=== PATIENT | female | born 1945 | race Caucasian/White ===

== ENCOUNTER 2018-01-22 10:43 | Inpatient (IN) ==
--- NOTE | 2018-01-22 11:05 | EKG ---
[address] [address] Measurements Intervals [place] Rate: 107 P: 41 ME: 159 QRS: -5 QRSD: 92 T: 48 QT: 313 QTc: 376 Interpretive Statements SINUS TACHYCARDIA WITH FREQUENT VENTRICULAR PREMATURE COMPLEXES, some in bigeminal pattern ABNORMAL RHYTHM ECG INTERPRETATION BASED ON A DEFAULT AGE OF 40 YEARS No previous ECG available for comparison Electronically Signed On 01-23-18 15:07:48 MDT by Simone Patton MD [id number]
[2018-01-22 11:13] LABS: BASOPHILS # (AUTO) 0.03 10*3/UL; BASOPHILS % (AUTO) 0.1 % (0-1); EOSINOPHILS # (AUTO) 0.08 10*3/UL; EOSINOPHILS % (AUTO) 0.3 % (0-8); Hemoglobin [HGB] 11.5 g/dL (12.0-16.0); LYMPHOCYTES # (AUTO) 1.12 10*3/uL; MEAN CORPUSCULAR HGB CONC 31.9 g/dL (33-37); MEAN PLATELET VOLUME 9.6 FL (7.4-12.2); MONOCYTES # (AUTO) 2.24 10*3/UL (0.3-0.8); MONOCYTES % (AUTO) 9.4 % (5-15); NEUTROPHILS # (AUTO) 20.39 10*3/UL; NEUTROPHILS % (AUTO) 85.1 % (50-80); RED BLOOD COUNT 3.71 10^6/uL (4.20-5.40)
[2018-01-22 11:20] LABS: BLOOD UREA NITROGEN 40 mg/dL (7-22); BUN/CREATININE RATIO 17.39 (6-20); SERUM ALBUMIN 3.5 g/dL (3.5-4.8)
[2018-01-22 11:26] LABS: PLATELET MORPHOLOGY COMMENT NORMAL MORPHOLOGY (NORM); RBC MORPHOLOGY COMMENT NORMAL MORPHOLOGY (NORM); WBC MORPHOLOGY COMMENT NORMAL MORPHOLOGY (NORM)
[2018-01-22] MEDS: Sodium Chloride 0.9% 1,000 ML PRIMARY IV ONE ×2 (11:32→13:39)
[2018-01-22 11:40] LABS: VENOUS PH 7.39 (7.32-7.42)
--- NOTE | 2018-01-22 11:55 | DI ---
AP CHEST X-RAY, 01/22/2018 11:00 AM : Clinical History: Confusion. Fatigue. Previous Exam: None at this facility. There is no acute soft tissue or bony abnormality. The patient is status post total left reverse shou lder replacement and right humeral head replacement. Heart size is normal. Lungs are clear. There is eventration of the right diaphragm. Mediastinal structures are normal. There are no pulmonary nodules . Reading: Normal chest x-ray.
--- NOTE | 2018-01-22 12:21 | DI ---
CT HEAD SCAN WITHOUT IV CONTRAST, 01/22/2018 11:00 AM : Clinical History: Confusion. Previous Exam: None at this facility. Scans are obtained from the foramen magnum to the vertex without IV contrast. The 4th, 3rd, and lateral ventricles are of normal size, shape, position, and contour for the patient 's age. There is no evidence of an acute hemorrhagic or bland infarct. There is a punctate 2 mm calci fic density in the left centrum semiovale just superior to the body of the left lateral ventricle. Th is can represent a calcification in a vascular channel or a nidus secondary to a previous intracerebr al infection. In the left parieto-occipital region near the the midline or some calcifications abutti ng the dura. The largest measures 7 mm in diameter and may represent a small calcified meningioma. Th ere is mild cerebellar and cerebral atrophy. There are no extracerebral mantles or shift of the midli ne structures. Bone window evaluation is normal. The paranasal sinuses are normal. READIN. There is no evidence of an acute hemorrhagic or bland infarct. 2. There is a small 2 mm punctate calcification located in the left centrum semiovale in proximity t o the body of the left lateral ventricle anteriorly. This can either represent calcification in a vas cular channel such as a venous angioma, or it may represent postinfectious calcification. 3. Probable 7 mm calcified meningioma in the left parietal-occipital junction near the midline. 4. Mild cerebellar and cerebral atrophy.
[2018-01-22 12:34] LABS: BILIRUBIN,URINE NEGATIVE (NEG); CLARITY,URINE Slightly Cloudy (CLEAR); COLOR,URINE YELLOW (Y); GLUCOSE, URINE (UA) NEGATIVE (NEG); OCCULT BLOOD,URINE Trace-intact (NEG); PROTEIN,URINE NEGATIVE (NEG); UROBILINOGEN,URINE 0.2 EU/dL (0.2)
[2018-01-22 12:36] LABS: RBC,URINE 0-2 /hpf; SQUAMOUS EPITHELIAL CELL,UR RARE; URINE SAMPLE TYPE VOIDED SPECIMEN; WBC,URINE >100
[2018-01-22 12:37] LABS: BACTERIA,URINE MANY
[2018-01-22] MEDS ORDERED: cefTRIAXone Inj 1 GM in Sodium Chloride 0.9% 100 ML IV ONE (13:22)
[2018-01-22] MEDS ORDERED: cefTRIAXone 1 GM VIAL ONE (13:32)
[2018-01-22] MEDS ORDERED: LIDOCAINE W/ SODIUM BICARB 0.5 ML SYR SUBD PRN (14:41)
[2018-01-22] MEDS ORDERED: ONDANSETRON 4 MG/2 ML VIAL IVP PRN (14:41)
[2018-01-22] MEDS ORDERED: CALCIUM CARBONATE 500 MG (TUMS) CHEWABLE TABLET PO PRN (14:41)
[2018-01-22] MEDS ORDERED: DOCUSATE 100 MG CAPSULE PO PRN (14:41)
--- NOTE | 2018-01-22 15:10 | PDOC ---
HPI - History of Present Illness Date of Service: 01/22/18 Time of Service: 15:00 Chief Complaint: Weakness the last few days, confusion yesterday, sweating today. History of Present Illness: This is a 72 years old the female with medical history significant for history of hypertension, diabetes, chronic kidney disease stage III and neuropathy who was sent to the hospital from the clinic in [place] because of sweating, and weakness. The weakness she said started a few days ago, yesterday the family reported confusion and the also some confusion this morning, she also said was shaking yesterday. The felt that she had a fever. They did not check the temperature though. Because of all the symptoms she went to the clinic and from there they sent her to the ER in the ER she was found to have an elevated white count, her urine test was abnormal showing worsening kidney failure she was given fluids and Rocephin was admitted. She feels somewhat better compared to when she came in. She is denying chest pain, shortness of breath, dizziness did report some frontal headache. Family did report that she appeared short of breath though when she walked from the parking lot to the ER. Past Medical History Medical History: 1. History of diabetes had it for 2 years. 2. History of hypertension. 3. History of osteoarthritis. 4. History of chronic kidney disease stage III. 5. History of depression. 6. History of neuropathy Surgical History: 1. History of bilateral knee replacement. 2. History of bilateral hip replacement. 3. History of bilateral shoulder replacement Family History: Reviewed an Not Pertinent Past Social History: Does not smoke. Drinks no drugs. Lives with his spouse in [facility]. Tobacco Use: Never Smoker In the Past 12 Months, Have Used or Abuse Any of the Following Substance: None Medication / Allergies Home Medications: Home Medications 3 Medication Instructions Recorded Confirmed Type Aspirin 81 mg ORAL QD tab 04/16/12 01/22/18 History Multivitamin [Daily Vitamin] 1 tab ORAL QD tab 04/16/12 01/22/18 History Insulin Lispro [Humalog Kwikpen 200 unit SQ AC #1 unit 11/11/15 01/22/18 History U-200] Pen Needle, Diabetic, Safety 1 ea TID #270 unit 12/07/15 01/22/18 History [Autoshield Pen Needle] Insulin Glargine SoloStar Inj 20 unit SUBCUT QHS #3 unit 01/20/17 01/22/18 Rx [Lantus Solostar Inj] enalapril maleate 10 mg tablet 10 mg ORAL BID #180 tab 07/04/17 01/22/18 Rx omeprazole 20 mg capsule,delayed 20 mg PO DAILY #90 cap 07/04/17 01/22/18 Rx release meloxicam 15 mg tablet 15 mg PO QDAY #90 tab 07/19/17 01/22/18 Rx duloxetine 60 mg capsule,delayed 60 mg ORAL QD #90 cap 10/03/17 01/22/18 Rx release blood sugar diagnostic strips 1 strip MISCELLANEOUS TID #100 11/06/17 01/22/18 Rx strip spironolactone 25 mg tablet 12.5 mg PO DAILY #45 tab 12/08/17 01/22/18 Rx tramadol 50 mg tablet 50 mg PO Q8-12H PRN #180 tab 12/08/17 01/22/18 Rx simvastatin 20 mg tablet 20 mg ORAL QD #90 tab 01/15/18 01/22/18 Rx cyclobenzaprine 10 mg tablet 10 mg PO TID #90 tab 01/17/18 01/22/18 Rx Allergies/Adverse Reactions: Allergies 3 Allergy/AdvReac Type Severity Reaction Status Date / Time Penicillins Allergy RASH Verified 01/22/18 14:21 Sulfa (Sulfonamide Allergy RASH Verified 01/22/18 14:21 Antibiotics) Review of Systems - Review of Systems All Systems: Reviewed & No Additional Complaints Except as Stated Exam - Vitals Vital Signs: Vital Signs Temperature 98.2 F Temperature Source Temporal Artery Scan Pulse Rate [Telemetry] 101 Respiratory Rate 16 Blood Pressure [Left Arm] 126/74 Pulse Ox 94 Oxygen Delivery Method Room Air Height 5 ft 5 in Weight 168 lb 12.8 oz - General General Appearance: No Acute Distress, Cooperative - Head Head Exam: Normal Inspection - Eye Eye Exam: POSITIVE: Normal Appearance - ENT ENT Exam: POSITIVE: Normal Exam - Neck Neck Exam: Normal Inspection - Respiratory Respiratory Exam: POSITIVE: Clear to Auscultation - Bilaterally - Cardiovascular Cardiovascular Exam: POSITIVE: RRR - GI/Abdominal GI/Abdominal Exam: POSITIVE: Normal Bowel Sounds, Non Tender, Non Distended, Soft, No Organomegaly - Rectal Rectal Exam: POSITIVE: Deferred - External Exam: POSITIVE: Deferred Exam: POSITIVE: Deferred - Extremities Extremities Exam: POSITIVE: Normal Inspection - Back Back Exam: POSITIVE: Normal Inspection - Neurological Neurological Exam: POSITIVE: Alert, Oriented x 3, CN II-XII Intact, No Facial Droop, Speech Intact / Clear, Moves All Extremities Equally - Psychiatric Psychiatric Exam: POSITIVE: Normal Affect - Integumentary Integumentary Exam: POSITIVE: Normal Color Results - Labs CBC and BMP: 01/22/18 10:50 01/22/18 10:50 - EKG Data -: EKG Interpreted by Me Rate: Tachycardia - EKG Data When Compared to Previous EKG(s) There Are: Other (EKG shows sinus tachycardia with frequent premature beats) - Imaging Status: Report Reviewed by Me (CT head 1. There is no evidence of an acute hemorrhagic or bland infarct. 2. There is a small 2 mm punctate calcification located in the left centrum semiovale in proximity to the body of the left lateral ventricle anteriorly. This can either represent calcification in a vascular channel such as a venous angioma, or it may represent postinfectious calcification. 3. Probable 7 mm calcified meningioma in the left parietal- occipital junction near the midline. 4. Mild cerebellar and cerebral atrophy. Chest X ray Normal chest x-ray.) Assessment and Plan - Patient Problems (1) Sepsis Current Visit: Yes Status: Acute Comment: The tachycardia and the indurated white count suggest sepsis. The source seem to be the urinary tract. She was given fluids and antibiotics will continue. Code(s): A41.9 - Sepsis, unspecified organism (2) Urinary tract infection Current Visit: Yes Status: Acute Comment: Continue Rocephin. Will wait for culture results. Code(s): N39.0 - Urinary tract infection, site not specified (3) Acute on chronic renal failure Current Visit: Yes Status: Acute Comment: There is worsening of her kidney disease compared to what she had in 2016 I think there is an elements of an acute worsening. Will give her fluid repeat her labs in the morning. We'll hold off on her enalapril and spironolactone Code(s): N17.9 - Acute kidney failure, unspecified; N18.9 - Chronic kidney disease, unspecified (4) Diabetes mellitus, type 2 Current Visit: No Status: Chronic Comment: Continue with the Lantus and sliding scale. (5) Calcified cerebral meningioma Current Visit: Yes Status: Acute Comment: CT suggests a calcified stable meningioma this need to be followed up as an outpatient Code(s): D32.0 - Benign neoplasm of cerebral meninges
[2018-01-22] MEDS: Sodium Chloride 0.9% 1,000 ML PRIMARY IV SCH ×2 (15:18→23:39)
[2018-01-22] MEDS: ACETAMINOPHEN 325 MG TABLET PO PRN ×2 (15:29→23:45)
[2018-01-22] MEDS ORDERED: traMADol 50 MG TABLET PO PRN (16:58)
[2018-01-22] MEDS: Simvastatin Tab 20 MG TAB PO SCH (21:09)
[2018-01-22] MEDS: Insulin Glargine SoloStar Inj 100 UNIT/ML INSULN.PEN SUBCUT SCH (21:09)
[2018-01-22] MEDS ORDERED: METOPROLOL SUCCINATE 50 MG SR 24H TABLET PO ONE (23:36)
--- NOTE | 2018-01-23 00:33 | EKG ---
[address] [address] Measurements Intervals [place] Rate: 131 P: 22 UT: 155 QRS: 1 QRSD: 93 T: 71 QT: 272 QTc: 349 Interpretive Statements SINUS TACHYCARDIA NONSPECIFIC ST & T-WAVE ABNORMALITY ABNORMAL RHYTHM ECG Compared to ECG 01/22/2018 08:33:06 T-wave abnormality now present Electronically Signed On 01-23-18 15:10:56 MDT by Simone Patton MD [id number]
[2018-01-23] MEDS ORDERED: Vancomycin-PHA to Dose IV PRN (00:49)
[2018-01-23] MEDS ORDERED: Acetaminophen 1000mg Inj 1,000 MG/100 ML VIAL IV PRN (00:50)
[2018-01-23] MEDS: Meropenem Inj 1 GM in Sodium Chloride 0.9% 100 ML IV SCH ×2 (01:25→14:17)
[2018-01-23 05:09] LABS: BASOPHILS # (AUTO) 0.02 10*3/UL; BASOPHILS % (AUTO) 0.1 % (0-1); EOSINOPHILS # (AUTO) 0 10*3/UL; EOSINOPHILS % (AUTO) 0 % (0-8); Hematocrit [HCT] 31.4 % (37.0-47.0); Hemoglobin [HGB] 9.9 g/dL (12.0-16.0); LYMPHOCYTES # (AUTO) 0.92 10*3/uL; MEAN CORPUSCULAR HEMOGLOBIN 30.7 PG (27-31); MEAN CORPUSCULAR HGB CONC 31.5 g/dL (33-37); MEAN CORPUSCULAR VOLUME 97.2 FL (81-99); MONOCYTES # (AUTO) 2.21 10*3/UL (0.3-0.8); MONOCYTES % (AUTO) 10.7 % (5-15); NEUTROPHILS # (AUTO) 17.43 10*3/UL; NEUTROPHILS % (AUTO) 84.3 % (50-80); RED BLOOD COUNT 3.23 10^6/uL (4.20-5.40)
[2018-01-23 05:12] LABS: BLOOD UREA NITROGEN 35 mg/dL (7-22); BUN/CREATININE RATIO 18.42 (6-20)
[2018-01-23 05:41] LABS: PLATELET MORPHOLOGY COMMENT NORMAL MORPHOLOGY (NORM); RBC MORPHOLOGY COMMENT NORMAL MORPHOLOGY (NORM); WBC MORPHOLOGY COMMENT NORMAL MORPHOLOGY (NORM)
--- NOTE | 2018-01-23 06:07 | PDOC ---
General Adult HPI - General Chief Complaint: Chest Pain Stated Complaint: fatigue, disorientation, "just not feeling well" Date Seen by Provider: 01/22/18 Time Seen by Provider: 10:45 Source: POSITIVE: Patient, Old records, Other (Spouse and children) Exam Limitations: POSITIVE: No limitations Nurse's Notes Reviewed & Considered: Yes - History of Present Illness Initial Comment: The patient is a 72-year-old female who is brought by private auto from the medical clinic in [place], reportedly having been instructed by a nurse practitioner at that clinic to come to the emergency room. The patient has a two-week history of "being tired and intermittently disoriented". Some headache. Daughter states that she has been "spending all of her time in bed. She has had episodes of "being shaky and off balance. Patient has a history of cardiac dysrhythmias and was evaluated by a referral rn in [place] with a Holter monitor and patient family states that she was told that "everything looked fine". She has also had intermittent fevers. No head, chest or abdominal pain. History of diabetes mellitus and takes 15 units of NovoLog in the evening. Patient states that her blood sugars have been "okay. Have you received a tetanus shot in the past 10 years?: No Body Location Affected: REPORTS: Other (Multiple complaints as above) Timing: REPORTS: Gradual Duration: >1 week (2 weeks) Severity: Moderate Quality: REPORTS: Other (Patient denies any pain anywhere) Context: DENIES: None, Sitting, Standing, Activity, Emotional stress, Coughing, Recent Trauma, Recent Surgery, Sleep, Rest, Lifting, Turning, Bending, Fall, Near Fall, Other Modifying Factors: worse with: Nothing, Analgesics, Antacids, Breathing, Coughing, Defecating, Vomiting, Eating, Exercise, Lying down, Urinating, Palpation, Movement, Rest, Upright Position, Walking, Remaining Still, Other Similar Symptoms Previously: No Recent Care Received: REPORTS: Recently Seen, Treated by MD (As above) Any Prior Injuries Related to Current Complaint?: No - Patient Home Medications Home Medications: Home Medications Aspirin 81 mg ORAL QD tab 04/16/12 Multivitamin [Daily Vitamin] 1 tab ORAL QD tab 04/16/12 Insulin Lispro [Humalog Kwikpen U-200] 200 unit SQ AC #1 unit 05/18/16 Pen Needle, Diabetic, Safety [Autoshield Pen Needle] 1 ea MC TID #270 unit 12/06 Insulin Glargine SoloStar Inj [Lantus Solostar Inj] 20 unit SUBCUT QHS #3 unit 01/20/17 enalapril maleate 10 mg tablet 10 mg ORAL BID #180 tab 07/04/17 omeprazole 20 mg capsule,delayed release 20 mg PO DAILY #90 cap 07/04/17 meloxicam 15 mg tablet 15 mg PO QDAY #90 tab 07/19/17 duloxetine 60 mg capsule,delayed release 60 mg ORAL QD #90 cap 10/03/17 blood sugar diagnostic strips 1 strip MISCELLANEOUS TID #100 strip 11/06/17 spironolactone 25 mg tablet 12.5 mg PO DAILY #45 tab 12/08/17 tramadol 50 mg tablet 50 mg PO Q8-12H PRN #180 tab 12/08/17 simvastatin 20 mg tablet 20 mg ORAL QD #90 tab 01/15/18 cyclobenzaprine 10 mg tablet 10 mg PO TID #90 tab 01/17/18 Furosemide 20 mg PO DAILY 01/22/18 Metoprolol Succinate 100 mg PO QAM 01/22/18 Prednisone 5 mg PO DAILY 01/22/18 - Patient Allergies Allergies/Adverse Reactions: Allergies 3 Allergy/AdvReac Type Severity Reaction Status Date / Time Penicillins Allergy RASH Verified 01/22/18 14:21 Sulfa (Sulfonamide Allergy RASH Verified 01/22/18 14:21 Antibiotics) Past Medical History - heen HEENT History: Denies History Cardiovascular History: Denies History Respiratory History: Denies History Gastrointestinal History: Denies History Genitourinary History: Denies History Endocrine History: Type 2 Diabetes (diet), Type 2 Diabetes (insulin) Musculoskeletal History: Arthritis Neurological History: Denies History Blood Disorders: Denies History Psychiatric History: Depression Female Reproductive History: Hysterectomy Obstetrical History: Denies History Cancer History: Denies History In Past Year Been Physically Harmed or Verbally Threatened: No History of MDRO: No Tobacco Use: Never Smoker In the Past 12 Months, Have Used or Abuse Any Substance: None Previous Surgical History: No Significant Family History: Asthma, Heart disease, Diabetes Past Medical History Reviewed: Reviewed - No Changes ROS - Limitations ROS Limitations: No Limitations Constitution: REPORTS: Chills, Fever (Subjectively), Weakness, Other ("Sweating ") Cardiovascular: REPORTS: Denies Cardiac Symptoms Respiratory: REPORTS: Denies Resp Symptoms Neurological: REPORTS: Confusion (Intermittently according to daughter), Dizziness Gastrointestinal: REPORTS: Denies GI Symptoms Endocrine: REPORTS: Fatigue Musculoskeletal: REPORTS: Denies MS Symptoms Genitourinary: REPORTS: Denies Symptoms Eyes: REPORTS: Denies Symptoms ENT: REPORTS: Denies Symptoms Skin: REPORTS: Denies Skin Symptoms Lympathic: REPORTS: Denies Lympathic Symptoms Immunologic: POSITIVE: Denies Symptoms Psychiatric: POSITIVE: Denies Psych Symptoms General Adult Exam - General Appearance General Appearance: POSITIVE: Alert, Cooperative, No Acute Distress, No Evidence of Trauma - HEENT HEENT: POSITIVE: Head Inspection Nml, Eyes Inspection Nml, Ears Inspection Nml, Nose Inspection Nml, Oral/Dental Inspect. Nml, Pharynx Inspect. Nml, PERRL, EOMI - Pupils Pupil Size: 4 mm: Bilateral (PERRLA) - Neck Neck: POSITIVE: Normal Inspection, Thyroid Normal - Respiratory Respiratory: POSITIVE: No Respiratory Distress, Breath Sounds Normal, Chest Non- Tender - Cardiovascular Cardiovascular: POSITIVE: No Murmur, No Gallop, PMI Normal, Frequent Extrasystoles. NEGATIVE: Regular Rate & Rhythm (Frequent PVCs) Peripheral Pulses: Radial (R): 2+, Radial (L): 2+ - Abdomen Abdomen: Soft: (All Quadrants), Normal Bowel Sounds: (All Quadrants), Denies Tenderness: (All Quadrants), No Splenomegaly: (All Quadrants), No Hepatomegaly: (All Quadrants), No Guarding: (All Quadrants), No Rebound: (All Quadrants), No Palpable Pulse: (All Quadrants), No Palpabale Mass: (All Quadrants), No Distention: (All Quadrants), No Rigidity: (All Quadrants) - Back Back: POSITIVE: Normal Inspection - Skin Skin: POSITIVE: Normal Color, Warm, Dry, No Rash - Extremities Extremity: Non-Tender: (All Extremities), Normal ROM: (All Extremities), Normal Inspection: (All Extremities) - Neurological / Psychological Neurological: POSITIVE: Affect Apporpriate, Oriented X3, 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 CT scan of head shows probable meningioma and is otherwise normal. Lab Results Reviewed by Me: Yes (White blood cell count 23,950; catheter UA shows white blood cell counts gr) Lab Results:: Laboratory Results 3 01/22/18 01/22/18 01/22/18 10:50 10:50 10:50 WBC 23.95 H RBC 3.71 L Hgb 11.5 L Hct 36.0 L MCV 97.0 MCH 31.0 MCHC 31.9 L RDW Std Deviation 44.7 RDW Coeff of Ana 13.0 Plt Count 326 MPV 9.6 Immature Gran % (Auto) 0.4 Neut % (Auto) 85.1 H Lymph % (Auto) 4.7 L [place] % (Auto) 9.4 Eos % (Auto) 0.3 Baso % (Auto) 0.1 Immature Gran # (Auto) 0.09 Neut # (Auto) 20.39 Lymph # (Auto) 1.12 [place] # (Auto) 2.24 H Eos # (Auto) 0.08 Baso # (Auto) 0.03 WBC Morphology Comment Normal morphology Plt Morphology Comment Normal morphology RBC Morph Comment Normal morphology VBG pH VBG pCO2 VBG HCO3 VBG Base Excess Sodium 133 L Potassium 4.3 Chloride 99 Carbon Dioxide 23 Anion Gap 11 BUN 40 H Creatinine 2.3 H Estimated GFR [employer] BUN/Creatinine Ratio 17.39 Glucose 90 Calculated Osmolality 285.0 Lactic Acid 1.3 Calcium 8.6 L Magnesium 1.8 Total Bilirubin 0.3 AST 22 ALT 25 Alkaline Phosphatase 117 Total Creatine Kinase 99 CK-MB (CK-2) Troponin I NT-Pro-B Natriuret Pep 1340 H Total Protein 6.6 Albumin 3.5 Globulin 3.0 Albumin/Globulin Ratio 1.10 L Ur Collection Type Urine Color Urine Clarity Urine pH Ur Specific [place] Urine Protein Urine Glucose (UA) Urine Ketones Urine Occult Blood Urine Nitrate Urine Bilirubin Urine Urobilinogen Ur Leukocyte Esterase Urine RBC Urine WBC Ur Squamous Epith Cells Ur Renal Epithelial Cell Urine Crystals Urine Bacteria Urine Casts Urine Mucus Urine Trichomonas Urine Yeast Ur Culture Indicated? 3 01/22/18 01/22/18 01/22/18 10:50 11:25 12:31 WBC RBC Hgb Hct MCV MCH MCHC RDW Std Deviation RDW Coeff of Ana Plt Count MPV Immature Gran % (Auto) Neut % (Auto) Lymph % (Auto) [place] % (Auto) Eos % (Auto) Baso % (Auto) Immature Gran # (Auto) Neut # (Auto) Lymph # (Auto) [place] # (Auto) Eos # (Auto) Baso # (Auto) WBC Morphology Comment Plt Morphology Comment RBC Morph Comment VBG pH 7.39 VBG pCO2 36 L VBG HCO3 22 VBG Base Excess -3 L Sodium Potassium Chloride Carbon Dioxide Anion Gap BUN Creatinine Estimated GFR BUN/Creatinine Ratio Glucose Calculated Osmolality Lactic Acid Calcium Magnesium Total Bilirubin AST ALT Alkaline Phosphatase Total Creatine Kinase CK-MB (CK-2) 0.98 Troponin I 0.036 NT-Pro-B Natriuret Pep Total Protein Albumin Globulin Albumin/Globulin Ratio Ur Collection Type Voided specimen Urine Color Yellow Urine Clarity Slightly cloudy Urine pH 6.0 Ur Specific [place] <=1.005 Urine Protein Negative Urine Glucose (UA) Negative Urine Ketones Negative Urine Occult Blood Trace-intact H Urine Nitrate Negative Urine Bilirubin Negative Urine Urobilinogen 0.2 Ur Leukocyte Esterase Moderate Urine RBC 0-2 Urine WBC >100 H Ur Squamous Epith Cells Rare Ur Renal Epithelial Cell None Urine Crystals None Urine Bacteria Many H Urine Casts None Urine Mucus None Urine Trichomonas None Urine Yeast None Ur Culture Indicated? Culture set CBC and BMP: 01/23/18 04:06 01/23/18 04:06 EKG Interpreted/Reviewed By Me:: Yes (frequent unifocal PVCs with aggressive bigeminy) EKG Interpretation:: POSITIVE: Normal Rate, Normal Intervals, Normal [place], Normal QRS, Normal ST/T, Abnormal EKG. NEGATIVE: Normal Sinus Rhythm (Frequent unifocal PVCs) - Patient's Progress Pain Medication Addressed: POSITIVE: Not Applicable Re-Examine Time: 14:00 Re-Examine Comment: Blood and urine cultures were done. Patient given a gram of Rocephin IV, in case discussed with hospitalist, Dr. Herrera. Patient admitted by Dr. Herrera for further evaluation and treatment. Status: POSITIVE: Unchanged, Re-Examined Antibiotics Given: Yes (Rocephin, 1 g IV) - Consult Consult (If Yes, Name of Consulting MD & Time Called): Yes (Dr. Herrera, hospitalist, 1400) Consulting MD will see pt:: POSITIVE: [facility] [place] Admit Counseled: POSITIVE: Patient, Family, RE: Lab Results, RE: Radiology Results, RE : DX, RE: Need for F/U Patient Care Time - Estimated PCT Patient Care Time (In Minutes): 60 Vital Signs - Recent Vital Signs Vital Signs: Vital Signs (Last 8 hours) Temp Pulse Pulse Resp BP Pulse Ox 01/23/18 04:11 98.2 F 90 20 122/55 98 01/23/18 03:41 92 01/23/18 02:31 103 H 01/23/18 01:45 137/50 01/23/18 01:34 99.5 F 01/23/18 01:13 91 01/23/18 00:15 102.9 F H 01/23/18 00:00 101.3 F H 147 H 24 153/83 88 01/22/18 23:45 101.3 F H 01/22/18 23:00 111 H - VS Reviewed Vital Signs Reviewed: Yes Discharge Clinical Impression: UTI (urinary tract infection), Sepsis, PVC (premature ventricular contraction) Discharge Disposition: Admit to Inpatient Condition: Fair Date Decision to Admit to Inpatient: 01/22/18 Time Decision to Admit to Inpatient: 14:00
[2018-01-23] MEDS: DULOXETINE 60 MG CAPSULE PO SCH (08:27)
[2018-01-23] MEDS: METOPROLOL SUCCINATE 50 MG SR 24H TABLET PO SCH (08:28)
[2018-01-23] MEDS: ASPIRIN 81 MG (BABY) CHEWABLE TABLET PO SCH (08:28)
[2018-01-23] MEDS: OMEPRAZOLE 20 MG CAPSULE PO SCH (08:28)
[2018-01-23] MEDS ORDERED: cefTRIAXone Inj 2 GM in Sodium Chloride 0.9% 100 ML IV SCH (09:00)
[2018-01-23] MEDS ORDERED: predniSONE 5 MG TABLET PO SCH (09:00)
[2018-01-23] MEDS: Sodium Chloride 0.9% 1,000 ML PRIMARY IV SCH ×2 (09:42→19:19)
[2018-01-23] MEDS: cefTRIAXone Inj 2 GM in Sodium Chloride 0.9% 100 ML IV SCH (14:10)
--- NOTE | 2018-01-23 16:27 | PDOC(PROG) ---
Date and Time of Service: 01/23/2018, 1625 Interval History: Patient states that she is much more clear today. Overall, her history of confusion was 2 weeks, worse in the mornings, she had some shaking and tremors of her hands in the morning and seemed to be weak as well. The patient admits to taking twice the dose of her tramadol as well as Flexeril and states that with the Flexeril and tramadol, she thinks her symptoms got significantly worse. in terms of her osteoarthritis, she's been treated with prednisone for some time. Interestingly, the patient had a positive antinuclear antibody titer with a homogenous pattern with a titer of 1-160. She had a negative rheumatoid factor, but did not have an Antibodies to citrullinate panel drawn. She could very well have rheumatoid arthritis. It's difficult to tell. I think she needs additional workup for this. The patient has never had kidney failure before. She is much more alert and oriented today. Objective : Data - Labs CBC and BMP: 01/23/18 04:06 01/23/18 04:06 Additional Lab Results: 01/22/18 01/22/18 01/23/18 10:50 10:50 04:06 Troponin I 0.036 0.058 H NT-Pro-B Natriuret Pep 1340 H 01/23/18 14:10 Troponin I 0.022 NT-Pro-B Natriuret Pep 01/22/18 12:31 Urine Culture - Preliminary Urine,Random Gram-negative rods, greater than 100,000 colony-forming units. Objective : Exam - General General Appearance: No Acute Distress, Cooperative Additional General Exam Details: Vital Signs - Last Taken Temperature 98 F 01/23/18 16:22 Pulse Rate 89 01/23/18 16:22 Respiratory Rate 18 01/23/18 16:22 Blood Pressure 138/63 01/23/18 16:22 Pulse Ox 91 01/23/18 16:22 - Eye Eye Exam: No Scleral Icterus - ENT ENT Exam: Mucous Membranes Moist - Respiratory Respiratory Exam: Clear to Auscultation - Bilaterally, Breathing Non Labored - Cardiovascular Cardiovascular Exam: RRR, No Murmur, No Clicks, No Gallops, No Rubs, No JVD - GI/Abdominal GI/Abdominal Exam: Normal Bowel Sounds, Non Tender, Non Distended, Soft - Extremities Extremities Exam: No Clubbing Present, No Edema Present, No Cyanosis Present - Neurological Neurological Exam: Alert, Oriented x 3, No Facial Droop, Speech Intact / Clear, Moves All Extremities Equally Assessment and Plan - Patient Problems (1) Urinary tract infection Current Visit: Yes Status: Acute Code(s): N39.0 - Urinary tract infection, site not specified Qualifiers: Urinary tract infection type: acute cystitis Hematuria presence: without hematuria Qualified Code(s): N30.00 - Acute cystitis without hematuria (2) Diabetes mellitus, type 2 Current Visit: Yes Status: Chronic Qualifiers: Diabetes mellitus skilled nursing insulin use: with skilled nursing use Diabetes mellitus complication status: without complication Qualified Code(s): E11.9 - Type 2 diabetes mellitus without complications; Z79.4 - intermediate (current) use of insulin (3) Acute on chronic renal failure Current Visit: Yes Status: Acute Code(s): N17.9 - Acute kidney failure, unspecified; N18.9 - Chronic kidney disease, unspecified Qualifiers: Acute renal failure type: unspecified Chronic kidney disease stage: unspecified stage Qualified Code(s): N17.9 - Acute kidney failure, unspecified ; N18.9 - Chronic kidney disease, unspecified (4) Sepsis Current Visit: Yes Status: Resolved Code(s): A41.9 - Sepsis, unspecified organism Qualifiers: Sepsis type: sepsis due to unspecified organism Qualified Code(s): A41.9 - Sepsis, unspecified organism (5) Calcified cerebral meningioma Current Visit: Yes Status: Acute Code(s): D32.0 - Benign neoplasm of cerebral meninges (6) Altered mental status Current Visit: Yes Status: Resolved Code(s): R41.82 - Altered mental status , unspecified Qualifiers: Altered mental status type: unspecified Qualified Code(s): R41.82 - Altered mental status, unspecified (7) Arthritis Current Visit: Yes Status: Acute Code(s): M19.90 - Unspecified osteoarthritis, unspecified site - Assessment / Plan Additional Assessment/Plan Details: This is a very complex case, in the setting of all the issues that probably need continued workup. First, the patient has a urinary tract infection that appears acute, present on admission, and we will continue Rocephin for now, wait for final ID, and then de -escalate as possible to by mouth antibiotics been able to be tolerated. I think the altered mental status has resolved, and the patient was examined with her and other family members present and they agreed. I suspect it was related to tramadol and Flexeril in the setting of renal failure. It is cleared now as his medications and been held. Given the BUN to creatinine ratio, I think the patient is still dehydrated, however, given her age, depending on where her creatinine and Zyrtec, I think she may benefit from a nephrology evaluation as an outpatient. The patient states to me she's had chronic anemia, but has never had an EGD or colonoscopy. It's normocytic, but I think she still warrants gastroenterology workup. Continue IV antibiotics, fluids, stop tramadol, and stop Flexeril. I think the steroids need to be discontinued. However as the patient is been on steroids for some time, we will taper them very slowly starting at a 4 mg dose weekly for a couple of weeks and then decreasing after that by 1 mg until we can hopefully titrate this medication off. Check labs in a.m.
[2018-01-23] MEDS: Insulin Glargine SoloStar Inj 100 UNIT/ML INSULN.PEN SUBCUT SCH (21:37)
[2018-01-23] MEDS: Simvastatin Tab 20 MG TAB PO SCH (21:37)
[2018-01-24] MEDS: ACETAMINOPHEN 325 MG TABLET PO PRN (00:58)
[2018-01-24] MEDS: Sodium Chloride 0.9% 1,000 ML PRIMARY IV SCH ×2 (03:45→15:02)
[2018-01-24 06:32] LABS: BASOPHILS # (AUTO) 0.03 10*3/UL; BASOPHILS % (AUTO) 0.2 % (0-1); EOSINOPHILS # (AUTO) 0.05 10*3/UL; EOSINOPHILS % (AUTO) 0.3 % (0-8); Hemoglobin [HGB] 9.7 g/dL (12.0-16.0); LYMPHOCYTES # (AUTO) 1.39 10*3/uL; MEAN CORPUSCULAR HEMOGLOBIN 31.1 PG (27-31); MEAN CORPUSCULAR HGB CONC 31.3 g/dL (33-37); MEAN CORPUSCULAR VOLUME 99.4 FL (81-99); MEAN PLATELET VOLUME 9.5 FL (7.4-12.2); MONOCYTES # (AUTO) 1.37 10*3/UL (0.3-0.8); MONOCYTES % (AUTO) 8.1 % (5-15); NEUTROPHILS # (AUTO) 13.92 10*3/UL; NEUTROPHILS % (AUTO) 82.6 % (50-80); RED BLOOD COUNT 3.12 10^6/uL (4.20-5.40)
[2018-01-24 06:54] LABS: PLATELET MORPHOLOGY COMMENT NORMAL MORPHOLOGY (NORM); RBC MORPHOLOGY COMMENT NORMAL MORPHOLOGY (NORM); WBC MORPHOLOGY COMMENT NORMAL MORPHOLOGY (NORM)
[2018-01-24 07:04] LABS: BLOOD UREA NITROGEN 24 mg/dL (7-22); BUN/CREATININE RATIO 17.14 (6-20); SERUM ALBUMIN 2.7 g/dL (3.5-4.8)
[2018-01-24] MEDS ORDERED: LIDOCAINE W/ SODIUM BICARB 0.5 ML SYR ONE (07:21)
[2018-01-24] MEDS: DULOXETINE 60 MG CAPSULE PO SCH (08:00)
[2018-01-24] MEDS: METOPROLOL SUCCINATE 50 MG SR 24H TABLET PO SCH (08:00)
[2018-01-24] MEDS: OMEPRAZOLE 20 MG CAPSULE PO SCH (08:00)
[2018-01-24] MEDS: ASPIRIN 81 MG (BABY) CHEWABLE TABLET PO SCH (08:00)
[2018-01-24] MEDS ORDERED: predniSONE 5 MG TABLET PO SCH (09:00)
[2018-01-24] MEDS: cefTRIAXone Inj 2 GM in Sodium Chloride 0.9% 100 ML IV SCH (14:07)
--- NOTE | 2018-01-24 14:26 | PDOC(PROG) ---
Date and Time of Service: 01/24/2018, 1420 Interval History: Patient feeling much better. Confusion is completely resolved. No fevers, chills, chest pain, shortness breath, nausea or vomiting. Her Hemoccult on stool was positive. We discussed this and she is willing to visit with surgery on an outpatient basis for EGD and colonoscopy. Kidney function looks much better. Objective : Data - Labs CBC and BMP: 01/24/18 06:29 01/24/18 06:29 Additional Lab Results: 01/23/18 01/24/18 01/24/18 13:37 06:29 06:29 Total Protein 5.2 L Albumin 2.7 L Globulin 2.5 Albumin/Globulin Ratio 1.00 L Vitamin B12 Vitamin D 25-Hydroxy Serum Folate TSH 0.651 Stool Occult Blood Positive 01/24/18 01/24/18 06:29 06:29 Total Protein Albumin Globulin Albumin/Globulin Ratio Vitamin B12 822 Vitamin D 25-Hydroxy 38.8 Serum Folate > 20.0 H TSH Stool Occult Blood Objective : Exam - General General Appearance: No Acute Distress, Cooperative Additional General Exam Details: Vital Signs - Last Taken Temperature 97 F 01/24/18 11:14 Pulse Rate 76 01/24/18 11:14 Respiratory Rate 18 01/24/18 11:14 Blood Pressure 152/71 01/24/18 11:14 Pulse Ox 91 01/24/18 11:14 - Head Head Exam: Normal Inspection, Normocephalic, Atraumatic - Eye Eye Exam: No Scleral Icterus - ENT ENT Exam: Mucous Membranes Moist - Respiratory Respiratory Exam: Clear to Auscultation - Bilaterally, Breathing Non Labored - Cardiovascular Cardiovascular Exam: RRR, No Murmur, No Clicks, No Gallops, No Rubs, No JVD - GI/Abdominal GI/Abdominal Exam: Normal Bowel Sounds, Non Tender, Non Distended, Soft - Extremities Extremities Exam: No Clubbing Present, No Edema Present, No Cyanosis Present - Neurological Neurological Exam: Alert, Oriented x 3, No Facial Droop, Speech Intact / Clear, Moves All Extremities Equally Assessment and Plan - Patient Problems (1) Urinary tract infection Current Visit: Yes Status: Acute Code(s): N39.0 - Urinary tract infection, site not specified Qualifiers: Urinary tract infection type: acute cystitis Hematuria presence: without hematuria Qualified Code(s): N30.00 - Acute cystitis without hematuria (2) Diabetes mellitus, type 2 Current Visit: Yes Status: Chronic Qualifiers: Diabetes mellitus superintendent [employer] insulin use: with longterm use Diabetes mellitus complication status: without complication Qualified Code(s): E11.9 - Type 2 diabetes mellitus without complications; Z79.4 - care home (current) use of insulin (3) Acute on chronic renal failure Current Visit: Yes Status: Acute Code(s): N17.9 - Acute kidney failure, unspecified; N18.9 - Chronic kidney disease, unspecified Qualifiers: Acute renal failure type: unspecified Chronic kidney disease stage: stage 3 (moderate) Qualified Code(s): N17.9 - Acute kidney failure, unspecified; N18.3 - Chronic kidney disease, stage 3 (moderate) (4) Sepsis Current Visit: Yes Status: Resolved Code(s): A41.9 - Sepsis, unspecified organism Qualifiers: Sepsis type: Escherichia coli Qualified Code(s): A41.51 - Sepsis due to Escherichia coli [E. coli] (5) Calcified cerebral meningioma Current Visit: Yes Status: Acute Code(s): D32.0 - Benign neoplasm of cerebral meninges (6) Altered mental status Current Visit: Yes Status: Resolved Code(s): R41.82 - Altered mental status , unspecified Qualifiers: Altered mental status type: unspecified Qualified Code(s): R41.82 - Altered mental status, unspecified (7) Arthritis Current Visit: Yes Status: Acute Code(s): M19.90 - Unspecified osteoarthritis, unspecified site - Assessment / Plan Additional Assessment/Plan Details: For the urine infection, acute renal failure, I think we should go ahead and get an ultrasound of the kidneys in the morning. I like to make sure they look okay. I am very reluctant to do a CT scan with contrast given the acute renal failure on presentation. Another dose of Rocephin today, then converted to Keflex for acute cystitis and treat for a total of 5-7 days. Depending on the kidney ultrasound, if there is any suggestion of pyelonephritis and we may need to extend therapy. She has allergies to penicillins and sulfa and I don't think for quinolone would make sense given the pansensitive nature of this Escherichia coli strain and tolerance of beta-lactam antibiotics. I think he should would benefit from a stress test outside the hospital although her troponin was only minimally elevated and 2 were negative. I do not think it was any indication of an ischemic event. Patient should have an EGD and colonoscopy with her anemia. Try to set up an outpatient stress test. On the heart. We have arranged for surgery consultation for EGD and colonoscopy given the anemia and Hemoccult- positive test. Stop telemetry monitoring. Stop fluids today. If all goes well, home tomorrow.
[2018-01-24] MEDS: Simvastatin Tab 20 MG TAB PO SCH (20:35)
[2018-01-24] MEDS: CEPHALEXIN 500 MG CAPSULE PO SCH (20:35)
[2018-01-24] MEDS ORDERED: Insulin Glargine SoloStar Inj 100 UNIT/ML INSULN.PEN SUBCUT SCH (21:00)
[2018-01-25] MEDS: ACETAMINOPHEN 325 MG TABLET PO PRN (03:31)
[2018-01-25 05:21] LABS: BASOPHILS # (AUTO) 0.02 10*3/UL; BASOPHILS % (AUTO) 0.2 % (0-1); EOSINOPHILS # (AUTO) 0.05 10*3/UL; EOSINOPHILS % (AUTO) 0.4 % (0-8); Hematocrit [HCT] 31.2 % (37.0-47.0); Hemoglobin [HGB] 9.6 g/dL (12.0-16.0); LYMPHOCYTES # (AUTO) 1.16 10*3/uL; MEAN CORPUSCULAR HEMOGLOBIN 30.1 PG (27-31); MEAN CORPUSCULAR HGB CONC 30.8 g/dL (33-37); MEAN CORPUSCULAR VOLUME 97.8 FL (81-99); MEAN PLATELET VOLUME 9.7 FL (7.4-12.2); MONOCYTES # (AUTO) 1.01 10*3/UL (0.3-0.8); MONOCYTES % (AUTO) 8.3 % (5-15); NEUTROPHILS # (AUTO) 9.78 10*3/UL; NEUTROPHILS % (AUTO) 80.8 % (50-80); RED BLOOD COUNT 3.19 10^6/uL (4.20-5.40)
[2018-01-25 06:10] LABS: PLATELET MORPHOLOGY COMMENT NORMAL MORPHOLOGY (NORM); RBC MORPHOLOGY COMMENT SEE COMMENTS (NORM); WBC MORPHOLOGY COMMENT NORMAL MORPHOLOGY (NORM)
[2018-01-25 07:22] VITALS: TEMP 97.2
[2018-01-25] MEDS: OMEPRAZOLE 20 MG CAPSULE PO SCH (08:21)
[2018-01-25] MEDS: DULOXETINE 60 MG CAPSULE PO SCH (08:21)
[2018-01-25] MEDS: METOPROLOL SUCCINATE 50 MG SR 24H TABLET PO SCH (08:21)
[2018-01-25] MEDS: ASPIRIN 81 MG (BABY) CHEWABLE TABLET PO SCH (08:21)
[2018-01-25] MEDS: CEPHALEXIN 500 MG CAPSULE PO SCH (08:22)
[2018-01-25] MEDS ORDERED: predniSONE 1 MG TAB PO SCH (09:00)
[2018-01-25 11:12] VITALS: BP 163/69; RESP 20; O2SAT 94
--- NOTE | 2018-01-25 12:41 | DCSUMMARY ---
Hospitalization Summary Admit Date: 01/22/2018 Discharge Date: 01/25/18 Primary Diagnosis:: acute renal failure Secondary Diagnosis:: Altered mental status, transient, resolved Acute, present on admission, urinary tract infection due to Escherichia coli Hospital Course: This very pleasant 72-year-old female that was seen and admitted here on 2017 with symptoms of confusion and disorientation. She was significant and extensive workup that ended up revealing acute renal failure, and acute urinary tract infection that ended up being secondary to pansensitive Escherichia coli, overuse of tramadol, Flexeril, and a calcified meningioma that probably is not causing issues but was found incidentally in this workup. The patient was admitted, given IV fluids, and placed on empiric antibiotics. Then a box with a narrowed and the patient was found to have a pansensitive Escherichia coli and she'll finish her course on Keflex for the next 3 days for total of 5 days of therapy. In terms of the kidney function, she was acutely dehydrated and she was also on enalapril and some diuretics which I think worsened her kidney failure. With fluid resuscitation and holding her medications, her kidney function returned to a baseline of about 1.4. Her creatinine is been baseline 1.4-1.6 since 2016 and I think the patient would benefit greatly from an evaluation with a weight engineer for chronic ended disease, probably stage III. I spoke with a weight engineer in [place] who will try to arrange an outpatient appointment with the patient for evaluation. In the meantime, for the hypertension I will prescribe Norvasc 10 mg by mouth daily and hold all the other blood pressure medicines of enalapril, spironolactone, and Lasix. The patient will also continue her metoprolol. I told her not to go back on her PEDRITO inhibitor or diuretics until instructed by a kidney specialist. In terms of the meningioma, there were no other acute findings on CT scan and we 'll have the patient visit with the neurologist to determine whether or not this meningioma should be worked up any further or whether she should proceed with a neurosurgery evaluation. I think overall that the confusion and altered mental state was toxic metabolic in nature and likely not related to the meningioma but a neurology opinion would be helpful in confirming this. We were able to arrange an appointment with Dr. Layton in [place] as an outpatient for this evaluation. We did push films for evaluation and gave the patient to CD with her imaging on this as well. We found that the patient had developing iron deficiency anemia. She's never had a colonoscopy for screening purposes so I did arrange an outpatient visit with surgery for screening colonoscopy and EGD. Patient's cholesterol was not an issue during the hospital stay but as she is on simvastatin at home, I will switch that to atorvastatin for compatibility with Norvasc. The patient has been on chronic prednisone therapy for osteoarthritis. She has diabetes. It appears well controlled, but I do not know if this is steroid- induced. Either way, I think it would be best for the patient to titrate off of the prednisone. She's taking 2-1/2 mg daily and she takes a half tablet of the 5 mg tablet daily. We will have her reduce this to 1 mg daily and then go to a half milligrams daily and then discontinue in a tapering fashion. We will do this over a 5 week course. In terms of the patient's pain for [place] arthritis, this may be difficult to control, but I do not think the patient would make a good candidate to remain on Flexeril or tramadol as I think these largely contributed to the patient's confusion, especially in the setting of kidney failure were metabolites likely built up. There was one transiently indeterminate range troponin that I think was very nonspecific during the hospital stay. Given that finding, I think it would be worthwhile to do a screening stress test for coronary artery disease on the patient and we have ordered a Lexiscan for that purpose. That is being arranged with the respiratory department. Outpatient consultations are obtained on behalf of Liana Wakefield and paperwork should be sent to her regarding opinions and evaluations. Today, the patient has no completes of chest pain, shortness breath, nausea or vomiting and she is ready to go home. Assessment and Plan: 1. As per discharge assessments noted 2. Disposition: Patient is discharged home. 3. Condition on discharge, stable and improved. 4. Diet: regular diet 5. Activities: resume normal activities 6. Follow-Up: 1. Liana Wakefield one week 2. We'll see neurology for meningioma evaluation next week 3. The patient will see nephrology for an evaluation of chronic kidney disease. 4. The patient will see surgery for evaluation of anemia and EGD and colonoscopy likely 7. Medications at the Time of Discharge: Home Medications 3 Medication Instructions Recorded Confirmed Type Aspirin 81 mg ORAL QD tab 04/16/12 01/22/18 History Multivitamin [Daily Vitamin] 1 tab ORAL QD tab 04/16/12 01/22/18 History Insulin Lispro [Humalog Kwikpen 200 unit SQ AC #1 unit 11/11/15 01/22/18 History U-200] Pen Needle, Diabetic, Safety 1 ea MC TID #270 unit 12/07/15 01/22/18 History [Autoshield Pen Needle] Insulin Glargine SoloStar Inj 20 unit SUBCUT QHS #3 unit 01/20/17 01/22/18 Rx [Lantus SoloStar Inj] omeprazole 20 mg capsule,delayed 20 mg PO DAILY #90 cap 07/04/17 01/22/18 Rx release duloxetine 60 mg capsule,delayed 60 mg ORAL QD #90 cap 10/03/17 01/22/18 Rx release blood sugar diagnostic strips 1 strip MISCELLANEOUS TID #100 11/06/17 01/22/18 Rx strip Metoprolol Succinate 100 mg PO QAM 01/22/18 01/22/18 History Amlodipine Besylate [Norvasc] 10 mg PO DAILY #30 tab 01/25/18 Rx Atorvastatin Calcium [Lipitor] 20 mg PO DAILY #90 tab 01/25/18 Rx Cephalexin [Keflex] 1,000 mg PO TID #24 cap 01/25/18 Rx predniSONE Tab [Deltasone Tab] 1 mg PO DAILY #30 tab 01/25/18 Rx 8. Time, care, counseling and coordination of care for this discharge is greater than 30 minutes. Exam - Vitals Vital Signs: Vital Signs Temperature 97.2 F Temperature Source Temporal Artery Scan Pulse Rate [Bilateral Radial] 77 Pulse Rate [Apical] 68 Pulse Rate [Pulse Oximeter] 83 Pulse Rate [Telemetry] 101 Pulse Rate 71 Respiratory Rate 20 Blood Pressure [Right Arm] 163/69 Blood Pressure [Left Arm] 152/71 Pulse Ox 94 Oxygen Flow Rate 1 Oxygen Delivery Method Room Air Height 5 ft 5 in Weight 165 lb - General General Appearance: No Acute Distress, Cooperative - Eye Eye Exam: POSITIVE: No Scleral Icterus - ENT ENT Exam: POSITIVE: Mucous Membranes Moist - Respiratory Respiratory Exam: POSITIVE: Clear to Auscultation - Bilaterally, Breathing Non Labored - Cardiovascular Cardiovascular Exam: POSITIVE: RRR, No Murmur, No Clicks, No Gallops, No Rubs, No JVD - GI/Abdominal GI/Abdominal Exam: POSITIVE: Normal Bowel Sounds, Non Tender, Non Distended, Soft - Extremities Extremities Exam: POSITIVE: No Clubbing Present, No Edema Present, No Cyanosis Present - Neurological Neurological Exam: POSITIVE: Alert, Oriented x 3, No Facial Droop, Speech Intact / Clear, Moves All Extremities Equally Data Peritnent Studies: 01/22/18 01/22/18 01/22/18 10:50 10:50 10:50 WBC 23.95 H Hgb Hct MCV MCH MCHC Plt Count VBG pH VBG pCO2 VBG HCO3 VBG Base Excess Sodium 133 L Potassium Chloride Carbon Dioxide Anion Gap BUN Creatinine BUN/Creatinine Ratio Glucose Calculated Osmolality Calcium Total Bilirubin AST ALT Alkaline Phosphatase Troponin I 0.036 Total Protein Albumin Globulin Albumin/Globulin Ratio Vitamin B12 Vitamin D 25-Hydroxy Serum Folate [facility] 01/22/18 01/23/18 01/23/18 11:25 04:06 04:06 WBC 20.66 H Hgb Hct MCV MCH MCHC Plt Count VBG pH 7.39 VBG pCO2 36 L VBG HCO3 22 VBG Base Excess -3 L Sodium Potassium Chloride Carbon Dioxide Anion Gap BUN Creatinine BUN/Creatinine Ratio Glucose Calculated Osmolality Calcium Total Bilirubin AST ALT Alkaline Phosphatase Troponin I 0.058 H Total Protein Albumin Globulin Albumin/Globulin Ratio Vitamin B12 Vitamin D 25-Hydroxy Serum Folate [facility] 01/23/18 01/24/18 01/24/18 14:10 06:29 06:29 WBC 16.86 H Hgb 9.7 L Hct 31.0 L MCV 99.4 H MCH 31.1 H MCHC 31.3 L Plt Count 284 VBG pH VBG pCO2 VBG HCO3 VBG Base Excess Sodium 142 D Potassium 4.4 Chloride 111 Carbon Dioxide 20 L Anion Gap 11 BUN 24 H Creatinine 1.4 H BUN/Creatinine Ratio 17.14 Glucose 84 Calculated Osmolality 296.0 H Calcium 8.3 L Total Bilirubin 0.4 AST 26 ALT 25 Alkaline Phosphatase 89 Troponin I 0.022 Total Protein 5.2 L Albumin 2.7 L Globulin 2.5 Albumin/Globulin Ratio 1.00 L Vitamin B12 Vitamin D 25-Hydroxy Serum Folate [facility] 01/24/18 01/24/18 01/24/18 06:29 06:29 06:29 WBC Hgb Hct MCV MCH MCHC Plt Count VBG pH VBG pCO2 VBG HCO3 VBG Base Excess Sodium Potassium Chloride Carbon Dioxide Anion Gap BUN Creatinine BUN/Creatinine Ratio Glucose Calculated Osmolality Calcium Total Bilirubin AST ALT Alkaline Phosphatase Troponin I Total Protein Albumin Globulin Albumin/Globulin Ratio Vitamin B12 822 Vitamin D 25-Hydroxy 38.8 Serum Folate > 20.0 H TSH 0.651 Procedures: [address] Medicine[address] [facility] [place] [address] PH: DD: [phone] FAX: [phone] ~DIAGNOSTIC IMAGING REPORT~ Patient: Kristina Montiel : 1945 Sex: F Age: 72 Exam Name: CT Head WO Contrast Exam Date: 01/22/18 Report # : [id number] CPT Code: 80760 EMR/MR #: [id number] Ordering: FÉLIX HORNER Admiting: Primary: Liana Wakefield PA-C Attending: Signed CT HEAD SCAN WITHOUT IV CONTRAST, 01/22/2018 11:00 AM : Clinical History: Confusion. Previous Exam: None at this facility. Scans are obtained from the foramen magnum to the vertex without IV contrast. The 4th, 3rd, and lateral ventricles are of normal size, shape, position, and contour for the patient's age. There is no evidence of an acute hemorrhagic or bland infarct. There is a punctate 2 mm calcific density in the left centrum semiovale just superior to the body of the left lateral ventricle. This can represent a calcification in a vascular channel or a nidus secondary to a previous intracerebral infection. In the left parieto-occipital region near the the midline or some calcifications abutting the dura. The largest measures 7 mm in diameter and may represent a small calcified meningioma. There is mild cerebellar and cerebral atrophy. There are no extracerebral mantles or shift of the midline structures. Bone window evaluation is normal. The paranasal sinuses are normal. READIN. There is no evidence of an acute hemorrhagic or bland infarct. 2. There is a small 2 mm punctate calcification located in the left centrum semiovale in proximity to the body of the left lateral ventricle anteriorly. This can either represent calcification in a vascular channel such as a venous angioma, or it may represent postinfectious calcification. 3. Probable 7 mm calcified meningioma in the left parietal-occipital junction near the midline. 4. Mild cerebellar and cerebral atrophy. Dictated By: 01/22/18 1158 YUE BAKER MD. Signed By: 01/22/18 1221 YUE BAKER MD. Patient Problems - Patient Problem List (1) Acute on chronic renal failure Current Visit: Yes Status: Acute Code(s): N17.9 - Acute kidney failure, unspecified; N18.9 - Chronic kidney disease, unspecified Qualifiers: Acute renal failure type: unspecified Chronic kidney disease stage: stage 3 (moderate) Qualified Code(s): N17.9 - Acute kidney failure, unspecified; N18.3 - Chronic kidney disease, stage 3 (moderate) Category: Medical (2) Urinary tract infection Current Visit: Yes Status: Acute Code(s): N39.0 - Urinary tract infection, site not specified Qualifiers: Urinary tract infection type: acute cystitis Hematuria presence: without hematuria Qualified Code(s): N30.00 - Acute cystitis without hematuria Category: Medical (3) Diabetes mellitus, type 2 Current Visit: Yes Status: Chronic Qualifiers: Diabetes mellitus skilled nursing insulin use: with buttermaker continuous churn use Diabetes mellitus complication status: without complication Qualified Code(s): E11.9 - Type 2 diabetes mellitus without complications; Z79.4 - custodial (current) use of insulin Category: Medical (4) Sepsis Current Visit: Yes Status: Resolved Code(s): A41.9 - Sepsis, unspecified organism Qualifiers: Sepsis type: Escherichia coli Qualified Code(s): A41.51 - Sepsis due to Escherichia coli [E. coli] Category: Medical (5) Calcified cerebral meningioma Current Visit: Yes Status: Acute Code(s): D32.0 - Benign neoplasm of cerebral meninges Category: Medical (6) Altered mental status Current Visit: Yes Status: Resolved Code(s): R41.82 - Altered mental status , unspecified Qualifiers: Altered mental status type: unspecified Qualified Code(s): R41.82 - Altered mental status, unspecified Category: Medical (7) Arthritis Current Visit: Yes Status: Acute Code(s): M19.90 - Unspecified osteoarthritis, unspecified site Category: Medical
== END 2018-01-25 13:33 | disposition home or self-care (01) | DRG 683 ==
LOC: MERGE 10:43 → ER 10:43 → MED/SURG 13:55
PROVIDERS: ADMIT Internal Medicine; ATTEND Internal Medicine